=== PATIENT | male | born 1995 | race Caucasian/White ===

== ENCOUNTER 2025-08-02 08:10 | Emergency (ER) | payer BC, SELFPAY ==
[2025-08-02 08:13] VITALS: BP 145/88
--- NOTE | 2025-08-02 08:30 | ED.GENMED ---
History of Present Illness
General
Chief Complaint: Abdominal Symptoms
Source: patient
Exam Limitations: none
Time Seen by Provider: 08/02/25 08:17
Nursing documentation reviewed up to this point in time: agreed with
History of Present Illness
History of Present Illness:
Patient is a 29 y.o healthy male who presents to the emergency department for evaluation of abdominal pain and vomiting. Patient states that symptoms started yesterday around 4 PM. He initially had a headache which has since resolved. He also was
nauseous and had multiple episodes of vomiting. He has since started with a few episodes of diarrhea. He describes somewhat diffuse abdominal pain however currently worse in the lower abdomen.
He denies any fever or chills. No urinary symptoms. No back pain. No productive cough. His last episode of vomiting was 10 PM last night.
He has no known sick contacts. No history of previous abdominal surgeries.
Of note�patient is getting tonight.
Review of Systems
Review of Systems
Allergies reviewed?: Yes
All Other Systems: ROS reviewed and negative except as documented in HPI and ROS
Phy Exam
Physical Exam
Physical Exam:
Vitals: Mildly hypertensive, otherwise vital signs stable. Afebrile
General: Patient is in no distress. Nontoxic appearing
Skin: Warm and dry, no rashes or lesions
Head: Normocephalic, atraumatic
Eyes: Sclera nonicteric.
Throat: Protecting airway
Neck: Normal ROM, no cervical spine tenderness, no meningismus
Cardiac: Regular rate and rhythm, no murmurs.
Pulm: Normal respiratory effort, no wheezes, rales, rhonchi heard on exam
Abdomen: Abdomen soft. Diffuse tenderness, no rebound or guarding. No CVA tenderness
Neuro: AAOx3. CN II-XII intact. No focal neurologic deficits.
Psychiatric: Normal affect.
Course
Orders/Labs/Results
Orders:
Orders
08/02/25 08:26
Electrocardiogram (*1) Urgent
Reason for Study: QTc Monitoring
EKG- Treatment ONCE
08/02/25 08:29
0.9% Sodium Chloride 1000 ml [Nss] 1,000 ml IV BOLUS
Ketorolac [Toradol] 15 mg IV NOW STA
Ondansetron Injectable [Zofran] 4 mg IV NOW STA
08/02/25 08:39
Alcohol Urgent
COVID-19 Antigen Urgent
Source: Nasal Swab
Complete Blood Count/With Diff Urgent
Comprehensive Metabolic Panel Urgent
Lipase Urgent
Influenza A+B Rapid Molecular Urgent
PAM Source: Nasal Swab
Specimen Description:
08/02/25 09:46
Diphenhydramine [Benadryl] 25 mg IV NOW STA
Metoclopramide [Reglan] 10 mg IV NOW STA
Abnormal Lab Results
08/02/25
08:39
Absolute Neuts (auto) 7.6 H 10^3/uL
(1.4-6.5)
Neutrophils % 81.8 H %
(42.2-75.2)
Lymphocytes % 13.1 L %
(20.5-51.1)
Calcium 10.5 H mg/dl
(8.4-10.2)
Total Bilirubin 1.5 H mg/dl
(0.2-1.3)
Total Protein 8.7 H g/dl
(6.3-8.2)
Albumin 5.5 H g/dl
(3.5-5.0)
08/02/25 08:39
08/02/25 08:39
Vital Signs
Initial and Last Documented VS:
Initial Vital Signs
Temp Pulse Resp BP Pulse Ox
98.0 F 91 16 145/88 98
08/02/25 08:13 08/02/25 08:13 08/02/25 08:13 08/02/25 08:13 08/02/25 08:13
Last Documented Vital Signs
Temp Pulse Resp BP Pulse Ox
98.0 F 66 17 106/52 99
08/02/25 08:13 08/02/25 11:48 08/02/25 11:48 08/02/25 11:48 08/02/25 11:48
MDM/Problems Addressed
Differential Diagnosis Includes:
Not limited to: Viral gastroenteritis, viral illness, colitis, gastritis, pancreatitis, appendicitis, cholecystitis, etc.
MDM/Problems Addressed:
29-year-old male with 1 day of diffuse abdominal pain associated with nausea, vomiting, and diarrhea. No fevers. Patient is afebrile with otherwise stable vital signs. On exam, he appears in no distress. His abdomen is soft with mild diffuse
tenderness. No rebound tenderness or guarding. Cardio/pulmonary assessment unremarkable. Differential includes gastroenteritis, gastritis, pancreatitis. Less likely acute appendicitis or acute cholecystitis given no focal tenderness however
would be on differential. Will check basic labs, viral studies, and provide symptomatic management. Will closely monitor and reassess after above.
Update: Labs without clinically significant abnormalities. No leukocytosis. Mild hypercalcemia noted. Possible dehydration from GI losses. Patient has some lingering nausea despite IV zofran, although he has not had any additional episodes of
vomiting since receiving antiemetic. His pain has improved. Will give reglan/benadryl and reassess.
Update: Patient states that he is feeling better. Abdomen soft with only mild diffuse tenderness. No localizing tenderness in RLQ. Given patient is afebrile without leukocytosis or focal tenderness in RLQ - very low suspicion for acute appendicitis.
Clinical picture consistent with possible gastroenteritis with associated vomiting and diarrhea. Shared decision making regarding proceeding with CT scan vs. supportive care and close monitoring of symptoms at home. Patient comfortabel with
discharge home as symptoms have improved significantly and will monitor symptoms closely. Return precuations discussed.
Chronic conditions affecting care:
N/A
Acute Exacerbation and/or Progression of Chronic Illness:
N/A
*Pulse Oximetry
SaO2: 98
Oxygen Mode of Delivery: Room air
Patient hypoxic: no
*EKG
Interpreted by ED Provider?: Yes
EKG Intrepretation Date: 08/02/25
Interpretation: normal
Comparison EKG: no comparison EKG present
Heart Rate: 71
Rate: normal
Rhythm: sinus
[place]: normal axis
Interval: normal interval
QRS Pattern: normal QRS
Ischemia: no ischemia
*Addictions Counselor Interpretation
Rate: Addictions Counselor- N/A
*Critical Care Note
Total Time (30-74mins, 75-104mins- exclusive of procedures): Not Applicable
ED Attending Note
-
Portions of this chart may have been created with voice recognition software.� Occasional wrong word or��sound alike� substitutions may have occurred due to the inherent limitations of voice recognition software.
Discharge Plan
Departure
Patient Disposition: Home (Routine Discharge)
Date of Disposition: 08/02/25
Time of Disposition: 11:35
Patient with high blood pressure during this ER visit?: Yes
Condition: Good
Covid-19: Negative COVID-19
Discharge Problem:
Nausea vomiting and diarrhea, Abdominal pain
Instructions: Nausea and Vomiting, Adult (DC), Abdominal Pain, BLOOD PRESSURE
Prescriptions:
New
ondansetron 4 mg tablet,disintegrating
4 mg PO Q8H PRN (Reason: nausea and vomiting) Qty: 7 0RF
Referrals:
NONE,* [Family Provider, Internal Medicine]
Activity Restrictions/Additional Instructions:
RETURN TO THE EMERGENCY DEPARTMENT ANY FEVER, CHILLS, PERSISTENT/WORSENING ABDOMINAL PAIN, PERSISTENT LACK OF APPETITE, WORSENING IN CURRENT SYMPTOMS, OR ANY OTHER CONCERNS
- Your calcium level was mildly elevated today in the emergency department. This may be due to dehydration. Please stay well-hydrated and have this rechecked with your primary care to ensure trending down.
- A prescription for Zofran has been sent to your pharmacy. You can take as needed for nausea/vomiting. It is important to continue to stay well-hydrated. I would recommend a bland diet over the next few days and slowly advance as tolerated. You
can take Tylenol and/or Motrin as needed for pain.
- Follow-up with your primary care for further evaluation/management as needed
Monitor your symptoms closely and return to the emergency department with any acute worsening/new symptoms or any other concerns
Interventions
Interventions:
*Risk Screen - Suicide Last Done: 08/02/25 08:13
*General Assessment Last Done: 08/02/25 08:13
*Neglect/Abuse Screening Last Done: 08/02/25 08:13
*ED- Fall Risk Assessment Last Done: 08/02/25 08:13
*ED COVID-19 Vaccine History Last Done: 08/02/25 08:13
*ED Influenza Vaccine History Last Done: 08/02/25 08:13
*Nursing Disposition Last Done: 08/02/25 11:48
KP-Wrxigd-Iactkvcbup Assessment Last Done: 08/02/25 10:26
Discharge Date and Time
Discharge Date/Time: 08/02/25 11:50
Print Language: SYRIAC
[2025-08-02 08:35] VITALS: BMI 20.7
[2025-08-02] MEDS: TORADOL 15 MG IV (08:44)
[2025-08-02] MEDS: ZOFRAN 4 MG IV (08:44)
[2025-08-02] MEDS: NSS 1000 IV (08:53)
[2025-08-02 09:02] LABS: Hematocrit 47.1 % (39.0-52.0); Hemoglobin 17.4 g/dL (13.0-18.0); Mean Corp Hgb Conc. 36.9 g/dL (33.0-37.0); Mean Corpuscular Volume 82.6 fL (80.0-94.0); Nucleated Red Blood Cells % 0 % (-); Platelet Count 283 10^3/uL (130-400); Red Cell Dist. Width 11.9 % (11.5-14.5)
[2025-08-02 09:13] LABS: COVID-19 Antigen Negative (Negative)
[2025-08-02 09:15] LABS: ALT (SGPT) 32 U/L (0-50); AST (SGOT) 28 U/L (17-59); Albumin 5.5 g/dl (3.5-5.0); Alkaline Phosphatase 70 U/L (38-126); Blood Urea Nitrogen 15 mg/dl (9-20); Calcium 10.5 mg/dl (8.4-10.2); Carbon Dioxide 26 mmol/L (22-30); Chloride 103 mmol/L (98-107); Estimated Creatinine Clearance 125 ml/min; Glucose 96 mg/dl (70-99); Lipase 45 U/L (23-300); Potassium 4.0 mmol/L (3.5-5.1); Sodium 140 mmol/L (135-145); Total Protein 8.7 g/dl (6.3-8.2); eGFR > 60.00
[2025-08-02] MEDS: BENADRYL 25 MG IV (10:15)
[2025-08-02] MEDS: REGLAN 10 MG IV (10:16)
[2025-08-02 11:48] VITALS: BP 106/52
== END 2025-08-02 11:50 | disposition home or self-care (01) ==
LOC: EMR 08:10
PROVIDERS: Physician Assistant; EMERGENCY PHYSICIAN Emergency Medicine
DX: R11.2 Nausea with vomiting, unspecified (principal); R19.7 Diarrhea, unspecified; R10.84 Generalized abdominal pain; E83.52 Hypercalcemia; Z11.52 Encounter for screening for COVID-19
CPT/HCPCS: 99284; 96374; 96375; 96361; 80053; 82077; 83690; 85025; 87502; 87811; 93005